=== PATIENT | female | born 1990 | race African-American/Black ===

== ENCOUNTER 2017-03-10 16:52 | Emergency (ER) | payer OTHER ==
[~2017-03-10] VITALS: Ht 172.7 cm; Wt 82.7 kg
[~2017-03-10 16:52] MED LIST: DEPO400I IM; DIAZ10 PO; LAMO100 PO; PERC5TAB12 PO; PROM25SU8 PO; RISP.25 PO; VENL-37 PO; VENL-39 PO; XANA0.5T PO
[2017-03-10 16:54] VITALS: BP 142/91; PULSE 80; RESP 14; TEMP 98.2; O2SAT 99
[2017-03-10] MEDS ORDERED: PRED20 PO (17:57)
--- NOTE | 2017-03-10 17:58 | PD ---
HPI Chief Complaint: Skin Problem Time Seen by Provider: 17:49 Travel History International Travel<30 days: No Contact w/Intl Traveler<30days: No Traveled to known affect area: No History of Present Illness HPI 26-year-old female here with a pruritic rash since this morning. Rash is localized to her trunk and upper extremities. She denies new medications, new detergents, body lotions, foods. She denies any oral swelling or difficulty swallowing. No previous allergic or anaphylactic reactions. She has not attempted any [id number] medicines. Severity is mild. PFSH Past Medical History Depression: Yes (POST- DEPRESSION) Diminished Hearing: No Hiatal Hernia: Yes Hypertension: Yes Psychiatric: Yes (BORDERLINE PERSONALITY DISORDER) Immunizations Current: No Tetanus Vaccination: < 5 Years ?: Not : 7 Para: 6 Miscarriage: 1 : 0 Social History Alcohol Use: No Tobacco Use: Yes (ppd) Substance Use: No Allergies-Medications (Allergen,Severity, Reaction): Coded Allergies: Sulfa (Sulfonamide Antibiotics) (Unverified Allergy, Intermediate, RASH, 03/10/17) Reported Meds & Prescriptions Reported Meds & Active Scripts Active Prednisone 20 Mg Tab 40 Mg PO DAILY Take 40 mg (2 tablets) daily for 5 days Review of Systems Except as stated in HPI: all other systems reviewed are Neg Physical Exam Narrative GENERAL: Alert female. Well-appearing. SKIN: Warm and dry. Mildly raised well demarcated erythematous rash scattered across patient's chest/back/upper extremities. HEAD: Normocephalic. EYES: No scleral icterus. No injection or drainage. NECK: Supple, trachea midline. CARDIOVASCULAR: Regular rate and rhythm RESPIRATORY: Breath sounds equal bilaterally. No accessory muscle use. No wheezing Data Data Last Documented VS Vital Signs Date Time Temp Pulse Resp B/P (MAP) Pulse Ox O2 Delivery O2 Flow Rate FiO2 03/10/17 16:54 98.2 80 14 142/91 (108) 99 MDM Medical Decision Making Medical Screen Exam Complete: Yes Emergency Medical Condition: Yes Differential Diagnosis Contact dermatitis, erythema multiform, unspecified skin eruption Narrative Course 26-year-old female here with pruritic rash to her upper extremity since this morning. She is well-appearing. The rash appears to be dermatitis. Diagnosis Primary Impression: Rash/skin eruption Referrals: [facility] Additional Instructions: Take [id number] Benadryl one 25 mg tablet by mouth every 6 hours as needed for itching Scripts Prednisone (Prednisone) 20 Mg Tab 40 MG PO DAILY, #6 TAB 0 Refills Take 40 mg (2 tablets) daily for 5 days Prov: Nichole Rossi 03/10/17 Disposition: 01 DISCHARGE HOME Condition: Stable Nichole Rossi Mar 10, 2017 17:58
== END 2017-03-10 18:32 | disposition home or self-care (01) ==
LOC: NEPK 16:52
DX: R21 Rash and other nonspecific skin eruption (principal); F17.200 Nicotine dependence, unspecified, uncomplicated
CPT/HCPCS: 99283

== ENCOUNTER 2017-04-14 20:40 | Emergency (ER) | payer OTHER | END 2017-04-14 23:29 | disposition home or self-care (01) | LOC: NEPK 20:40 | DX: J11.1 Influenza due to unidentified influenza virus with other respiratory manifestations (principal); F17.200 Nicotine dependence, unspecified, uncomplicated | CPT/HCPCS: 99283 ==

== ENCOUNTER 2017-07-04 23:33 | Emergency (ER) | payer OTHER ==
[~2017-07-04 23:33] MED LIST changes: -DEPO400I IM; -DIAZ10 PO; -LAMO100 PO; +OSEL75 PO; -PERC5TAB12 PO; +PRED20 PO; -PROM25SU8 PO; -RISP.25 PO; -VENL-37 PO; -VENL-39 PO; -XANA0.5T PO
[2017-07-04 23:45] VITALS: BP 132/80; PULSE 69; RESP 18; TEMP 98.5; O2SAT 100
[2017-07-05] MEDS ORDERED: LIDOCAINE 1%/EPINEPHrine 1:100,000 SOLN 30 ML VIAL ONE (00:18)
[2017-07-05] MEDS ORDERED: DOXYCYCLINE HYCLATE 100 MG CAP PO ONE (00:30)
[2017-07-05] MEDS ORDERED: ACETAMINOPHEN/HYDROcodone 325 MG/5 MG TAB PO ONE (00:30)
[2017-07-05] MEDS ORDERED: DOXY100C PO (00:31)
[2017-07-05] MEDS ORDERED: DICL75TA PO (00:31)
--- NOTE | 2017-07-05 00:39 | PD ---
HPI Chief Complaint: Lump, Cyst, Hernia Time Seen by Provider: 00:15 Travel History International Travel<30 days: No Contact w/Intl Traveler<30days: No Traveled to known affect area: No History of Present Illness HPI 27-year-old black female presents from [facility] with a painful lump on her left arm. She states that she's been having this for the last month or 2. In the last week and has become increasing painful and red. No drainage. Symptoms are moderate. No alleviating factors. No exacerbating factors. PFSH Past Medical History Depression: Yes (POST- DEPRESSION) Diminished Hearing: No Hiatal Hernia: Yes Hypertension: Yes Psychiatric: Yes (BORDERLINE PERSONALITY DISORDER) Immunizations Current: No ?: Not LMP: 06/10/17 : 7 Para: 6 Miscarriage: 1 : 0 Past Surgical History Surgical History: No Previous Surgery Social History Alcohol Use: No Tobacco Use: Yes Substance Use: No Allergies-Medications (Allergen,Severity, Reaction): Coded Allergies: Sulfa (Sulfonamide Antibiotics) (Unverified Allergy, Intermediate, RASH, ) Reported Meds & Prescriptions Reported Meds & Active Scripts Active Diclofenac Sodium DR (Diclofenac Sodium) 75 Mg Tabdr 75 Mg PO BID Doxycycline Hyclate 100 Mg Cap 100 Mg PO BID Review of Systems Except as stated in HPI: all other systems reviewed are Neg Physical Exam Narrative GENERAL: This is a well-nourished, well-developed patient, in no apparent distress. SKIN: Patient has a 2 x 2 centimeter indurated tender area under her left axilla. Mild erythema. No warmth. HEAD: Atraumatic. Normocephalic. EYES: PERRL, EOMI, no discharge or injection. No scleral icterus. EARS: Clear NOSE: Nasal turbinates appear normal. THROAT: Mucosa pink and moist. Airway patent. NECK: Trachea midline. supple, moves head freely. LUNGS: Clear to auscultation. CV: Regular in rhythm. ABDOMEN: Soft nontender. EXT: No clubbing cyanosis or edema. Data Data Last Documented VS Vital Signs Date Time Temp Pulse Resp B/P (MAP) Pulse Ox O2 Delivery O2 Flow Rate FiO2 07/04/17 23:45 98.5 69 18 132/80 (97) 100 Orders Orders Lidocai-Epi 1%-1:100,000 Inj (Xylocaine- (07/05/17 00:18) Doxycycline (Vibramycin) (07/05/17 00:30) Acetamin-Hydrocod 325-5 Mg ([place] 5-325 (07/05/17 00:30) Ed Discharge Order (07/05/17 00:34) [facility] Medical Decision Making Medical Screen Exam Complete: Yes Emergency Medical Condition: Yes Medical Record Reviewed: Yes Differential Diagnosis MDM: High Differential diagnoses: Abscess, folliculitis, cellulitis, lymphangitis, abrasion, contact dermatitis Narrative Course An incision and drainage has been performed. Patient given doxycycline 100 mg by mouth and hydrocodone 5 mg by mouth. Patient is aware that she has a retained capsule from her infected sebaceous cyst which will need to be revised at a later date. Patient verbally states understanding resume treatment plan of follow-up. This is an infected sebaceous cyst left axilla Procedures Procedure Narrative I&D abscess: After the risks and benefits were discussed the following procedure was performed. The skin is prepped and draped in the usual sterile fashion using Betadine. The abscess is anesthetized with 1% lidocaine with epinephrine. After adequate anesthesia, an 11 blade scalpel is used to make a 1.5 cm central incision. Perulant material is expressed Loculations are broken up using curved Nichole forceps. The wound is cleansed deeply using dilute Betadine and peroxide on Q- tips. . A clean dressing is applied. The patient tolerated the procedure well. There was no complications. Follow-up instructions were given to the patient. Diagnosis Primary Impression: left axilla sebaceous cyst infected Patient Instructions: Narcotic given in the ED, General Instructions Additional Instructions: Rest. Elevation. keep clean and dry. remove the packing in two days. Daily wound care with soap, water and Neosporin. Doxycycline and diclofenac. Follow-up with a primary care doctor in one week. Follow-up with a edge inker heels or plastic surgeon for surgical revision. Return to the ER for any problems. Med/Other Pt SpecificInfo: Prescription(s) given, Wound Care Scripts Diclofenac Sodium DR (Diclofenac Sodium DR) 75 Mg Tabdr 75 MG PO BID, #20 TAB 0 Refills Prov: Robby Santamaria MD 07/05/17 Doxycycline Hyclate (Doxycycline Hyclate) 100 Mg Cap 100 MG PO BID for Infection, #20 CAP 0 Refills Prov: Robby Santamaria MD 07/05/17 Disposition: 01 DISCHARGE HOME Condition: Stable Luiz James Jul 05, 2017 00:39
== END 2017-07-05 00:54 | disposition home or self-care (01) ==
LOC: NEPD 23:33
DX: L72.3 Sebaceous cyst (principal); L08.9 Local infection of the skin and subcutaneous tissue, unspecified; I10 Essential (primary) hypertension; Z88.2 Allergy status to sulfonamides; Z72.0 Tobacco use
CPT/HCPCS: 10060